=== PATIENT | female | born 1955 | race Hispanic/Latino ===

== ENCOUNTER 2019-09-15 08:34 | Emergency (ER) | payer OTHER ==
[2019-09-15] MEDS ORDERED: ALBUTEROL 2.5 MG/3 ML NEB SOL ONE (10:09)
[2019-09-15] MEDS ORDERED: IPRATROPIUM BROM 0.5MG/2.5ML ONE (10:09)
[2019-09-15] MEDS ORDERED: KETOROLAC 30 MG/ML INJ ONE (10:10)
[2019-09-15 10:17] LABS: Urine Bacteria 20-50 /HPF (<20)
[2019-09-15 10:18] LABS: Urine Culture Reflex Order NOT NEEDED; Urine Mucus 1+ /HPF (NONE SEEN); Urine Yeast PRESENT (NONE SEEN)
--- NOTE | 2019-09-15 10:27 | RAD REPORT ---
EXAM DESCRIPTION: CT - Stone Protocol - 09/15/2019 10:01 am CLINICAL HISTORY: right flank pain COMPARISON: CT-STONE PROTOCOL dated 10/02/2012 TECHNIQUE: Axial 5 mm thick images were obtained without oral or IV contrast. The [id number] span s the entirety of the system including uppermost abdomen and lung bases. All CT scans are performed using dose optimization technique as appropriate and may include automated exposure control or mA/KV adjustment according to patient size. FINDINGS: Left lung base is clear. No pericardial thickening or effusion. Minimal right pleural effu jamil is present with patchy medial right base lung parenchymal opacification approximately 3.4 x 1.5 cm in size. In the acute clinical setting an with right flank pain history, right base pneumonia is s uspected. No hydronephrosis is present and no obstructing ureteral calculi. No suspicious renal masses. Isodens e masses and pyelonephritis are not excluded on a stone protocol CT scan. Bladder is contracted which limits assessment. No significant adrenal finding. Uterus is absent. Both ovaries are present and has a normal oval shape. Overall ovarian size has incr eased since 2013. Right ovary is 3.4 cm in maximum dimension compared to 2.7 cm in 2013. Right ovary is 4.2 cm in maximum dimension compared with 3.1 cm in 2013. There is a uniform enlargement of the ov juan with no focal mass lesion identifiable. Correlation can be made with any change in normal thera py or other condition that may stimulate ovarian enlargement. This can be monitored on subsequent navi ging. Imaged portions of the liver, spleen and pancreas show no suspicious findings on non-contrast imaging . No gallbladder or biliary tree abnormality identified. Gallstones can be occult on CT imaging. No suspicious bowel findings. Normal appendix is seen. No hernia, mass or bulky lymphadenopathy noted. No free air, free fluid or inflammatory stranding. No significant bony abnormality. IMPRESSION: Suspected small posterior right lung base pneumonia and minimal pleural effusion. No hydronephrosis, obstructing calculus or acute finding. Isodense masses and pyelonephritis are not excluded on stone protocol technique. Both ovaries show an enlargement in size compared to 2013 without focal mass. Correlation can be made with any intervening hormone therapy or treatments that could have caused ovarian enlargement. This can be further evaluated with ROOM DESIGNER assessment and follow-up outpatient ultrasound.
--- NOTE | 2019-09-15 10:32 | EDPHYS ---
Physician Documentation [facility] Name: Angeli Barnes Age: 64 yrs Sex: Female : 1955 Arrival Date: 09/15/2019 Time: 08:37 Bed 20 Private MD: ED Physician Isacc Mosher HPI: 09/15 10:20 This 64 yrs old Female presents to ER via Ambulatory with complaints of Back kb Pain. 10:20 The patient complains of pain in the right flank. The pain does not radiate. Onset: The kb symptoms/episode began/occurred yesterday, at 15:00. Modifying factors: The symptoms are alleviated by nothing. the symptoms are aggravated by movement, palpation/percussion. Associated signs and symptoms: The patient has no apparent associated signs or symptoms. Severity of pain: At its worst the pain was moderate in the emergency department the pain is unchanged. The patient has not experienced similar symptoms in the past. The patient has not recently seen a physician. Pt reports right flank pain that started at 1500 yesterday. Denies any urinary symptoms. Pain worse with movement. States she is very active at work, lifting and moving, so she could have injured it that way. Historical: - Allergies: 08:53 unknown medication; rb1 - Home Meds: 08:53 lisinopril 20 mg Oral tab 1 tab once daily [Active]; levothyroxine 75 mcg tab 1 tab rb1 once daily [Active]; - PMHx: 08:53 Hypertension; Hypothyroidism; rb1 - PSHx: 08:53 bladder lift; Hysterectomy; rb1 - Immunization history:: Adult Immunizations up to date. - Coronavirus screen:: The patient has NOT traveled to [place] in the past 14 days. The patient has NOT had contact with known/suspected case of Coronavirus?. - Social history:: Smoking status: Patient reports the use of cigarette tobacco products, smokes one pack cigarettes per day. - Ebola Screening: : Patient negative for fever greater than or equal to 101.5 degrees Fahrenheit, and additional compatible Ebola Virus Disease symptoms. ROS: 10:19 Constitutional: Negative for fever, chills, and weight loss, ENT: Negative for injury, kb pain, and discharge, Neck: Negative for injury, pain, and swelling, Cardiovascular: Negative for chest pain, palpitations, and edema, Respiratory: Negative for shortness of breath, cough, wheezing, and pleuritic chest pain, Abdomen/GI: Negative for abdominal pain, nausea, vomiting, diarrhea, and constipation, : Negative for injury, bleeding, discharge, and swelling, MS/Extremity: Negative for injury and deformity, Skin: Negative for injury, rash, and discoloration, Neuro: Negative for headache, weakness, numbness, tingling, and seizure. 10:19 Back: Positive for pain at rest, pain with movement, flank pain, on the right. Exam: 10:19 Constitutional: This is a well developed, well nourished patient who is awake, alert, kb and in no acute distress. Head/Face: Normocephalic, atraumatic. ENT: Nares patent. No nasal discharge, no septal abnormalities noted. Tympanic membranes are normal and external auditory canals are clear. Oropharynx with no redness, swelling, or masses, exudates, or evidence of obstruction, uvula midline. Mucous membranes moist. Neck: Trachea midline, no thyromegaly or masses palpated, and no cervical lymphadenopathy. Supple, full range of motion without nuchal rigidity, or vertebral point tenderness. No Meningismus. Chest/axilla: Normal chest wall appearance and motion. Nontender with no deformity. No lesions are appreciated. Cardiovascular: Regular rate and rhythm with a normal S1 and S2. No gallops, murmurs, or rubs. Normal PMI, no JVD. No pulse deficits. Abdomen/GI: Soft, non-tender, with normal bowel sounds. No distension or tympany. No guarding or rebound. No evidence of tenderness throughout. Skin: Warm, dry with normal turgor. Normal color with no rashes, no lesions, and no evidence of cellulitis. MS/ Extremity: Pulses equal, no cyanosis. Neurovascular intact. Full, normal range of motion. Neuro: Awake and alert, GCS 15, oriented to person, place, time, and situation. Cranial nerves II-XII grossly intact. Motor strength 5/5 in all extremities. Sensory grossly intact. Cerebellar exam normal. Normal gait. 10:19 Back: pain, that is moderate, of the right flank, ROM is painful, normal spinal alignment noted, CVA tenderness, that is mild, that is moderate, is noted on the right. 10:20 Respiratory: the patient does not display signs of respiratory distress, Respirations: kb normal, Breath sounds: wheezing: inspiratory that is mild, is heard in the left posterior lower lobe and right posterior lower lobe. Vital Signs: 08:53 BP 161 / 83; Pulse 92; Resp 17; Temp 98.3(O); Pulse Ox 98% on R/A; Weight 62.14 kg (R); rb1 Height 5 ft. 4 in. (162.56 cm) (R); Pain 9/10; 09:52 rb1 10:14 BP 160 / 69; Pulse 77; Pulse Ox 100% on R/A; rb1 10:47 BP 148 / 78; Pulse 87; Resp 17; Pulse Ox 98% on R/A; Pain 5/10; rb1 08:53 Body Mass Index 23.52 (62.14 kg, 162.56 cm) rb1 09:52 Pt. went to radiology rb1 MDM: 08:57 Patient medically screened. kb 09:25 ED course: 2+ blood in urine dipstick. CT ordered to rule out stone. kb 10:18 Data reviewed: vital signs, nurses notes, lab test result(s), radiologic studies. Data kb interpreted: Pulse oximetry: on room air is 100 %. Interpretation: normal. 10:18 Differential diagnosis: nephrolithiasis, pyelonephritis, UTI, pneumonia. ED course: kb Awaiting CT results. . 10:30 Counseling: I had a detailed discussion with the patient and/or guardian regarding: the kb historical points, exam findings, and any diagnostic results supporting the discharge/admit diagnosis, lab results, radiology results, the need for outpatient follow up, a family practitioner, to return to the emergency department if symptoms worsen or persist or if there are any questions or concerns that arise at home. 09/15 09:08 Order name: Urine Microscopic Only; Complete Time: 10:22 kb 09/15 09:19 Order name: Urine Culture [facility] 09/15 09:08 Order name: Chest Pa And Lat (2 Views) XRAY kb 09/15 09:25 Order name: CT Stone Protocol; Complete Time: 10:29 kb 09/15 09:08 Order name: Urine Dipstick-Ancillary (obtain specimen); Complete Time: 09:24 kb Administered Medications: 10:13 Drug: TORadol 30 mg Route: IM; Site: right deltoid; rb1 10:30 Follow up: Response: No adverse reaction; Pain is decreased rb1 10:14 Drug: Albuterol 2.5 mg Route: Inhalation; rb1 10:14 Drug: AtroVENT Aerosol 0.5 mg Route: Inhalation; rb1 10:45 Drug: predniSONE 40 mg Route: PO; rb1 10:46 Follow up: Response: Medication administered at discharge. rb1 10:46 Drug: Zithromax 500 mg Route: PO; rb1 10:46 Follow up: Response: Medication administered at discharge. rb1 Disposition: 11:16 Co-signature as Attending Physician, Isacc Mosher MD. rn Disposition: 09/15/19 10:31 Discharged to Home. Impression: Pneumonia, unspecified organism. - Condition is Stable. - Discharge Instructions: Community-Acquired Pneumonia, Adult, [id number]. - Prescriptions for Prednisone 20 mg Oral Tablet - take 1 tablet by ORAL route once daily for 5 days; 5 tablet. Albuterol Sulfate 90 mcg/actuation - inhale 1-2 puff by INHALATION route every 4-6 hours; 1 Inhaler. Zithromax 500 mg Oral Tablet - take 1 tablet by ORAL route once daily for 5 days; 5 tablet. - Medication Reconciliation Form, Thank You Letter, Antibiotic Education, Prescription Opioid Use form. - Follow up: Emergency Department; When: As needed; Reason: Worsening of condition. Follow up: Private Physician; When: 2 - 3 days; Reason: Recheck today's complaints, Continuance of care, Re-evaluation by your physician. Signatures: Dispatcher [employer] EDAZ Mago Soto, STABLE ATTENDANT-C STABLE ATTENDANT-Ckb Isacc Mosher MD MD rn Barber, Rebecca, RN RN rb1 Corrections: (The following items were deleted from the chart) 10:20 10:18 Differential diagnosis: nephrolithiasis, pyelonephritis, UTI, kb kb 10:20 10:19 Constitutional: This is a well developed, well nourished patient who is awake, kb alert, and in no acute distress. Head/Face: Normocephalic, atraumatic. ENT: Nares patent. No nasal discharge, no septal abnormalities noted. Tympanic membranes are normal and external auditory canals are clear. Oropharynx with no redness, swelling, or masses, exudates, or evidence of obstruction, uvula midline. Mucous membranes moist. Neck: Trachea midline, no thyromegaly or masses palpated, and no cervical lymphadenopathy. Supple, full range of motion without nuchal rigidity, or vertebral point tenderness. No Meningismus. Chest/axilla: Normal chest wall appearance and motion. Nontender with no deformity. No lesions are appreciated. Cardiovascular: Regular rate and rhythm with a normal S1 and S2. No gallops, murmurs, or rubs. Normal PMI, no JVD. No pulse deficits. Respiratory: Lungs have equal breath sounds bilaterally, clear to auscultation and percussion. No rales, rhonchi or wheezes noted. No increased work of breathing, no retractions or nasal flaring. Abdomen/GI: Soft, non-tender, with normal bowel sounds. No distension or tympany. No guarding or rebound. No evidence of tenderness throughout. Skin: Warm, dry with normal turgor. Normal color with no rashes, no lesions, and no evidence of cellulitis. MS/ Extremity: Pulses equal, no cyanosis. Neurovascular intact. Full, normal range of motion. Neuro: Awake and alert, GCS 15, oriented to person, place, time, and situation. Cranial nerves II-XII grossly intact. Motor strength 5/5 in all extremities. Sensory grossly intact. Cerebellar exam normal. Normal gait. kb 10:30 10:18 Differential diagnosis: nephrolithiasis, pyelonephritis, UTI, kb kb 10:49 10:31 09/15/2019 10:31 Discharged to Home. Impression: Pneumonia, unspecified organism. rb1 Condition is Stable. Forms are Medication Reconciliation Form, Thank You Letter, Antibiotic Education, Prescription Opioid Use. Follow up: Emergency Department; When: As needed; Reason: Worsening of condition. Follow up: Private Physician; When: 2 - 3 days; Reason: Recheck today's complaints, Continuance of care, Re-evaluation by your physician. kb
--- NOTE | 2019-09-15 10:32 | ER ---
Nurse's Notes [facility] Name: Angeli Barnes Age: 64 yrs Sex: Female : 1955 Arrival Date: 09/15/2019 Time: 08:37 Bed 20 Private MD: Diagnosis: Pneumonia, unspecified organism Presentation: 09/15 08:53 Presenting complaint: Patient states: Started having right flank pain yesterday while rb1 at work. reports that she does a lot of lifting at work. Transition of care: patient was not received from another setting of care. Onset of symptoms was September 14, 2019. Risk Assessment: Do you want to hurt yourself or someone else? Patient reports no desire to harm self or others. Initial Sepsis Screen: Does the patient meet any 2 criteria? No. Patient's initial sepsis screen is negative. Does the patient have a suspected source of infection? No. Patient's initial sepsis screen is negative. Care prior to arrival: None. 08:53 Method Of Arrival: Ambulatory [facility] 08:53 Acuity: ERIK 3 rb1 Triage Assessment: 08:53 General: Appears in no apparent distress. comfortable, Behavior is calm, cooperative, rb1 Denies fever, feeling ill. Pain: Complains of pain in right flank Pain currently is 9 out of 10 on a pain scale. Pain began 1 day ago. Neuro: Level of Consciousness is awake, alert, obeys commands, Oriented to person, place, time, situation. Cardiovascular: Capillary refill < 3 seconds is brisk in bilateral fingers. Respiratory: Airway is patent Respiratory effort is even, unlabored, Respiratory pattern is regular, symmetrical. GI: No signs and/or symptoms were reported involving the gastrointestinal system. : No signs and/or symptoms were reported regarding the genitourinary system. Derm: Skin is pink, warm \T\ dry. Musculoskeletal: Range of motion: intact in all extremities. Historical: - Allergies: 08:53 unknown medication; rb1 - Home Meds: 08:53 lisinopril 20 mg Oral tab 1 tab once daily [Active]; levothyroxine 75 mcg tab 1 tab rb1 once daily [Active]; - PMHx: 08:53 Hypertension; Hypothyroidism; rb1 - PSHx: 08:53 bladder lift; Hysterectomy; rb1 - Immunization history:: Adult Immunizations up to date. - Coronavirus screen:: The patient has NOT traveled to [place] in the past 14 days. The patient has NOT had contact with known/suspected case of Coronavirus?. - Social history:: Smoking status: Patient reports the use of cigarette tobacco products, smokes one pack cigarettes per day. - Ebola Screening: : Patient negative for fever greater than or equal to 101.5 degrees Fahrenheit, and additional compatible Ebola Virus Disease symptoms. Screenin:53 Abuse screen: Denies threats or abuse. Nutritional screening: No deficits noted. rb1 Tuberculosis screening: No symptoms or risk factors identified. Fall Risk None identified. Assessment: 08:53 General: See triage assessment. rb1 09:50 Reassessment: Patient appears in no apparent distress at this time. Patient and/or rb1 family updated on plan of care and expected duration. Pain level reassessed. Patient is alert, oriented x 3, equal unlabored respirations, skin warm/dry/pink. 10:40 Reassessment: Patient appears in no apparent distress at this time. Patient states rb1 feeling better. Vital Signs: 08:53 BP 161 / 83; Pulse 92; Resp 17; Temp 98.3(O); Pulse Ox 98% on R/A; Weight 62.14 kg (R); rb1 Height 5 ft. 4 in. (162.56 cm) (R); Pain 9/10; 09:52 rb1 10:14 BP 160 / 69; Pulse 77; Pulse Ox 100% on R/A; rb1 10:47 BP 148 / 78; Pulse 87; Resp 17; Pulse Ox 98% on R/A; Pain 5/10; rb1 08:53 Body Mass Index 23.52 (62.14 kg, 162.56 cm) rb1 09:52 Pt. went to radiology [facility] ED Course: 08:37 Patient arrived in ED. ag5 08:53 Patient has correct armband on for positive identification. Bed in low position. Call rb1 light in reach. Side rails up X 1. Pulse ox on. NIBP on. Warm blanket given. 08:53 Arm band placed on right wrist. rb1 08:57 Mago Soto FNP-C is PHCP. kb 08:57 Isacc Mosher MD is Attending Physician. kb 09:07 Patricia Huff, DESHAUN is Primary Nurse. rb1 09:09 Triage completed. rb1 09:24 Urine Microscopic Only Sent. rb1 09:42 Chest Pa And Lat (2 Views) XRAY In Process Unspecified. EDMS 10:03 CT Stone Protocol In Process Unspecified. EDMS 10:47 No provider procedures requiring assistance completed. Patient did not have IV access rb1 during this emergency room visit. Administered Medications: 10:13 Drug: TORadol 30 mg Route: IM; Site: right deltoid; rb1 10:30 Follow up: Response: No adverse reaction; Pain is decreased rb1 10:14 Drug: Albuterol 2.5 mg Route: Inhalation; rb1 10:14 Drug: AtroVENT Aerosol 0.5 mg Route: Inhalation; rb1 10:45 Drug: predniSONE 40 mg Route: PO; rb1 10:46 Follow up: Response: Medication administered at discharge. rb1 10:46 Drug: Zithromax 500 mg Route: PO; rb1 10:46 Follow up: Response: Medication administered at discharge. rb1 Outcome: 10:31 Discharge ordered by MD. kb 10:47 Discharged to home ambulatory. rb1 10:47 Condition: stable 10:47 Discharge instructions given to patient, Instructed on discharge instructions, follow up and referral plans. medication usage, Demonstrated understanding of instructions, follow-up care, medications, Prescriptions given X 1. 10:49 Patient left the ED. rb1 Signatures: Dispatcher [employer] EDMS Mago Soto, FRANSISCA MCRAEP-Patricia Kay, RN RN rb1 Jose Shoemaker ag5
[2019-09-15] MEDS ORDERED: predniSONE 20 MG TAB ONE (10:44)
[2019-09-15] MEDS ORDERED: AZITHROMYCIN 250 MG TAB ONE (10:44)
--- NOTE | 2019-09-15 10:51 | RAD REPORT ---
EXAM DESCRIPTION: RAD - Chest Pa And Lat (2 Views) - 09/15/2019 9:36 am CLINICAL HISTORY: wheezing, right flank pain Chest pain. COMPARISON: Stone Protocol dated 09/15/2019 FINDINGS: The right lung base is hazy with small right pleural effusion likely representing mild inf iltrate/ pneumonia. The lungs are otherwise mildly emphysematous but clear. The heart is normal in si ze. No displaced fractures.
[2019-09-15 11:33] VITALS: TEMP 98.3
[2019-09-15 11:36] VITALS: BP 148/78; O2SAT 98
== END 2019-09-15 10:49 | disposition home or self-care (01) ==
LOC: ER 08:34
DX: J18.9 Pneumonia, unspecified organism (principal); I10 Essential (primary) hypertension; F17.210 Nicotine dependence, cigarettes, uncomplicated; E03.9 Hypothyroidism, unspecified
CPT/HCPCS: 71046; 74176; 76377; 81015; 87086; 87088; 96372; 99284; J7512

== ENCOUNTER 2020-01-14 13:00 | Emergency (ER) | payer OTHER ==
--- NOTE | 2020-01-14 15:28 | EDPHYS ---
Physician Documentation [facility] Name: Angeli Barnes Age: 64 yrs Sex: Female : 1955 Arrival Date: 01/14/2020 Time: 13:03 Bed 13 Private MD: ED Physician Eze Rodrigez HPI: 01/14 07:18 This 64 yrs old Female presents to ER via Ambulatory with complaints of Foot kdr Pain. 07:18 The patient presents with pain. The complaints affect the left foot. Context: The kdr problem was sustained at home, resulted from an unknown cause, Mechanism of Injury: Unknown the patient can fully bear weight, the patient is able to ambulate, with mild difficulty. Onset: The symptoms/episode began/occurred gradually, 1 week(s) ago. Modifying factors: The symptoms are alleviated by Non-weight bearing the symptoms are aggravated by weight bearing. Associated signs and symptoms: The patient has no apparent associated signs or symptoms. Severity of symptoms: At their worst the symptoms were mild, in the emergency department the symptoms are unchanged. The patient has not experienced similar symptoms in the past. The patient has not recently seen a physician. Historical: - Allergies: 01/13 13:13 Sulfa (Sulfonamide Antibiotics); ss - PMHx: 13:12 Hypertension; Hypothyroidism; ss - PSHx: 13:12 bladder lift; Hysterectomy; ss - Immunization history:: Adult Immunizations up to date. - Social history:: Smoking status: Patient reports the use of cigarette tobacco products, smokes one-half pack cigarettes per day. ROS: 01/14 07:18 Constitutional: Negative for fever, chills, and weight loss, Eyes: Negative for injury, kdr pain, redness, and discharge. MS/extremity: Positive for of the lateral side of left foot, Negative for injury or acute deformity, decreased range of motion, ecchymosis, erythema, paresthesias, puncture, rash, swelling, tingling. Exam: 07:18 Constitutional: This is a well developed, well nourished patient who is awake, alert, kdr and in no acute distress. Head/Face: Normocephalic, atraumatic. Eyes: Pupils equal round and reactive to light, extra-ocular motions intact. Lids and lashes normal. Conjunctiva and sclera are non-icteric and not injected. Cornea within normal limits. Periorbital areas with no swelling, redness, or edema. 07:18 Musculoskeletal/extremity: Extremities: grossly normal except: noted in the lateral side of left foot: Vital Signs: 01/13 13:10 BP 151 / 73; Pulse 88; Resp 16; Temp 97.9(TE); Pulse Ox 100% on R/A; Weight 63.5 kg; ss Height 5 ft. 4 in. (162.56 cm); Pain 7/10; 15:51 BP 114 / 78; Pulse 71; Resp 18; Temp 98.0(O); Pulse Ox 100% on R/A; Pain 5/10; ls4 13:10 Body Mass Index 24.03 (63.50 kg, 162.56 cm) MDM: 15:27 Patient medically screened. kdr 01/14 07:18 Data reviewed: vital signs, nurses notes. Counseling: I had a detailed discussion with kdr the patient and/or guardian regarding: the historical points, exam findings, and any diagnostic results supporting the discharge/admit diagnosis, radiology results, the need for outpatient follow up. 01/13 14:04 Order name: XRAY Foot LEFT 3 View 01/13 15:35 Order name: Lalo Wrap: Left foot; Complete Time: 15:49 kdr Administered Medications: 01/13 15:49 Drug: traMADol 50 mg Route: PO; ls4 15:51 Follow up: Response: Other ls4 Disposition: 01/14/20 15:27 Discharged to Home. Impression: Pain in left foot. - Condition is Stable. - Discharge Instructions: Foot Pain. - Prescriptions for Tramadol 50 mg Oral Tablet - take 1 tablet by ORAL route every 8 hours as needed; 12 tablet. - Medication Reconciliation Form, Thank You Letter, Prescription Opioid Use form. - Follow up: Private Physician; When: 2 - 3 days; Reason: If symptoms return, Further diagnostic work-up, Recheck today's complaints, Continuance of care, Re-evaluation by your physician. - Problem is new. - Symptoms are unchanged. Signatures: Dispatcher [employer] EDMS Eze Rodrigez MD MD [facility] Almaz Gonzalez RN RN Pricila Hoskins RN RN ls4 Corrections: (The following items were deleted from the chart) 15:52 15:27 01/14/2020 15:27 Discharged to Home. Impression: Pain in left foot. Condition is ls4 Stable. Forms are Medication Reconciliation Form, Thank You Letter, Antibiotic Education, Prescription Opioid Use. Follow up: Private Physician; When: 2 - 3 days; Reason: If symptoms return, Further diagnostic work-up, Recheck today's complaints, Continuance of care, Re-evaluation by your physician. Problem is new. Symptoms are unchanged. kdr
--- NOTE | 2020-01-14 15:28 | ER ---
Nurse's Notes [facility] Name: Angeli Barnes Age: 64 yrs Sex: Female : 1955 Arrival Date: 01/14/2020 Time: 13:03 Bed 13 Private MD: Diagnosis: Pain in left foot Presentation: 01/13 13:10 Chief complaint: Patient states: L foot pain x 1 week. Denies injury. Coronavirus ss screen: Proceed with normal triage. Patient denies a cough. Patient denies shortness of breath or difficulty breathing. Patient denies measured and/or subjective temperature greater than 100.4F prior to today's visit. Patient denies travel on a cruise ship or to a country the [facility] currently lists as an affected area. Patient denies contact with known and/or suspected case of COVID-19. Ebola Screen: Patient denies exposure to infectious person. Patient denies travel to an Ebola-affected area in the 21 days before illness onset. Initial Sepsis Screen: Does the patient meet any 2 criteria? No. Patient's initial sepsis screen is negative. Does the patient have a suspected source of infection? No. Patient's initial sepsis screen is negative. Risk Assessment: Do you want to hurt yourself or someone else? Patient reports no desire to harm self or others. Onset of symptoms was January 07, 2020. 13:10 Method Of Arrival: Ambulatory ss 13:10 Acuity: ERIK 4 ss Historical: - Allergies: 13:13 Sulfa (Sulfonamide Antibiotics); ss - PMHx: 13:12 Hypertension; Hypothyroidism; ss - PSHx: 13:12 bladder lift; Hysterectomy; ss - Immunization history:: Adult Immunizations up to date. - Social history:: Smoking status: Patient reports the use of cigarette tobacco products, smokes one-half pack cigarettes per day. Screenin:16 Abuse screen: Denies threats or abuse. Nutritional screening: No deficits noted. ss Tuberculosis screening: Never had TB. Fall Risk None identified. Assessment: 13:16 General: Appears in no apparent distress. comfortable, Behavior is calm, cooperative. ss Pain: Complains of pain in lateral side of left foot Pain currently is 7 out of 10 on a pain scale. Quality of pain is described as aching, tender, Is continuous. Neuro: Level of Consciousness is awake, alert, obeys commands, Oriented to person, place, time, situation. Cardiovascular: Pulses are palpable in right posterior tibial artery and left posterior tibial artery. Respiratory: Airway is patent Respiratory effort is even, unlabored, Respiratory pattern is regular, symmetrical. GI: Patient currently denies diarrhea, nausea. GI: No signs and/or symptoms were reported involving the gastrointestinal system. EENT: Throat is clear. Derm: Skin is intact, is healthy with good turgor, Skin is dry, Skin is pink, warm \T\ dry. normal. Musculoskeletal: Swelling absent. 14:44 Reassessment: Patient appears in no apparent distress at this time. Patient is alert, ss oriented x 3, equal unlabored respirations, skin warm/dry/pink. awaiting XRAY results. 15:49 Reassessment: Patient appears in no apparent distress at this time. Patient is alert, ls4 oriented x 3, equal unlabored respirations, skin warm/dry/pink. nicolette wrap applied to left foot. patient ambulated with no distress to exit. Vital Signs: 13:10 BP 151 / 73; Pulse 88; Resp 16; Temp 97.9(TE); Pulse Ox 100% on R/A; Weight 63.5 kg; ss Height 5 ft. 4 in. (162.56 cm); Pain 7/10; 15:51 BP 114 / 78; Pulse 71; Resp 18; Temp 98.0(O); Pulse Ox 100% on R/A; Pain 5/10; ls4 13:10 Body Mass Index 24.03 (63.50 kg, 162.56 cm) ED Course: 13:03 Patient arrived in ED. ag5 13:12 Triage completed. ss 13:13 Arm band placed on left wrist. ss 13:16 Almaz Gonzalez, DESHAUN is Primary Nurse. ss 13:16 Patient has correct armband on for positive identification. Bed in low position. Call ss light in reach. 14:19 Eze Rodrigez MD is Attending Physician. kdr 15:10 XRAY Foot LEFT 3 View In Process Unspecified. EDMS 15:51 No provider procedures requiring assistance completed. Patient did not have IV access ls4 during this emergency room visit. Administered Medications: 15:49 Drug: traMADol 50 mg Route: PO; ls4 15:51 Follow up: Response: Other ls4 Outcome: 15:27 Discharge ordered by . kdr 15:50 Discharged to home ambulatory, with family. ls4 15:50 Condition: good 15:50 Discharge instructions given to patient, family, Instructed on discharge instructions, follow up and referral plans. medication usage, safety practices, Demonstrated understanding of instructions, follow-up care, medications, Prescriptions given X 1. 15:52 Patient left the ED. ls4 Signatures: Dispatcher [employer] EDMS Eze Rodrigez MD MD kdr Smirch, Shelby, RN RN Pricila Gusman RN RN ls4 Jose Shoemaker [facility]
[2020-01-14] MEDS ORDERED: TRAMADOL HCL 50 MG TAB ONE (15:51)
[2020-01-14 16:00] VITALS: O2SAT 100
[2020-01-14 16:01] VITALS: BP 114/78; TEMP 98
--- NOTE | 2020-01-14 16:33 | RAD REPORT ---
EXAM DESCRIPTION: RAD - Foot Left 3 View - 01/14/2020 3:10 pm CLINICAL HISTORY: Left Foot pain FINDINGS: No fracture or dislocation is seen. Bones are osteoporotic
== END 2020-01-14 15:52 | disposition home or self-care (01) ==
LOC: ER 13:00
DX: M79.672 Pain in left foot (principal); I10 Essential (primary) hypertension; Z88.2 Allergy status to sulfonamides
CPT/HCPCS: 99283

== ENCOUNTER 2020-10-15 11:58 | Emergency (ER) | payer OTHER ==
--- OUTSIDE RECORDS SUMMARY | 2020-10-15 12:01 | XMS REPORT | Continuity of Care Document ---
:1955 Author Organization [facility] t Address [address] [place] [address] Care Team Providers Name Role Phone Jordy Attending Clinician [phone] Payers Payer Name Policy Type Policy Number Effective Date Expiration Date S ource Problems This patient has no known problems. Allergies, Adverse Reactions, Alerts Allergy Allergy Status Severity Reaction(s) Onset Inactive Treating Comm ents Source Name Type Date Date Clinician Sulfa DA Active 2019-07 [facility] (Sulfona 0-06 Clear mide 00:00: [facility] This patient has no known medications. Procedures This patient has no known procedures. Encounters Start End Encounter Admission Attending Care Care Encounter Source Date/Time Date/Time Type Type Clinicians Facility Department ID 2020-08-04 2020-08-04 [facility] [id number] [id number] 00:00:00 00:00:00 [facility] [id number] Results Test Description Test Time Test Comments Results Result Comments Source SURG 2020-05-06 16:23:00 --------RUN DATE: 05/06/20 [facility] PAGE 1 RUN TIME: 1623 Specimen Inquiry RUN USER: INTERFACE --------PATIENT: NIRALI CARTER LOC: [facility] U #: [id number] AGE/SX: 64/F ROOM: RE05/04/20[facility] DR: Rodney Becker MD : 53 BED: DIS: STATUS: [facility] TLOC: -------- SPEC #: [id number] RECD: 05/04/20 STATUS: CARLOS RECrystal #: [id number] ANGELINA: 05/04/[address] [facility] [address]: Rodney Becker MD ENTERED: 05/04/20 SP TYPE: SURG OTHR DR: DOES_NOT KNOW ORDERED: SURG PATH LVL 10/28 COPIES TO: DOES_NOT KNOW Rodney Becker MD [address] [place] [address] [id number] [place] [address] HISTOLOGY: TISSUE ID BLK PCS KERI LEV PROCEDURE DISPOSITION ____ ___ ___ ___ OVARY, NOS A 1 1 OVARY, NOS B 1 1 PROCEDURES: SURG PATH LVL 4 (05/04/20-1512) TISSUES: A. OVARY, NOS - LEFT OVARY AND FALLOPIAN TUBE B. OVARY, NOS - RIGHT OVARY AND FALLOPIAN TUBE CLINICAL HISTORY RIGHT OVARIAN CYST CPT CODES CPT CODE(S): 93059L6 , , , , , , FINAL DIAGNOSIS A. Left ovary and fallopian tube, salpingo-oophorectomy : FALLOPIAN TUBE WITH PARATUBAL CYST POLYCYSTIC OVARY B. Right ovary and fallopian tube, salpingo-oophorectomy : FALLOPIAN TUBE WITH PARATUBAL CYST POLYCYSTIC OVARY CONTINUED ON NEXT PAGE --------RUN DATE: 05/06/20 [facility] PAGE 2 RUN TIME: 1623 Specimen Inquiry RUN USER: INTERFACE --------SPEC #: [id number] PATIENT: NIRALI CARTER #[id number] (Continued) GROSS DESCRIPTION A. Left ovary and fallopian tube. Received in formalin is a 16.5 gram left salpingo-oophorectomy specimen and consists of a herrera-rey ovary, 4.5 x 3.8 x 1.7 cm and attached short segment of fallopian tube, 1.6 x 0.6 x 0.5 cm. The specimen is serially sectioned and consists of a multiloculated cyst filled with translucent nonviscous fluid. The remainder of the ovary is rey-brown and solid. The short segment of attached segment of fallopian tube has a patent lumen and is grossly unremarkable. Spray Dry Operator sections submitted as A1 - A5. B. Right ovary and fallopian tube. Received in formalin is a 13.5 gram right salpingo-oophorectom y specimen that includes a short segment of fallopian tube, 2.5 x 0.7 x 0.3 cm and herrera-rey ovary, 4.0 x 3.3 x 2.0 cm. There is a wide defect at one side of the ovary, 3.5 cm and reveals an underlying multiloculated cyst filled with translucent nonviscous fluid. The remainder of the ovary is herrera-rey and solid. The attached segment of fallopian tube is patent and is grossly unremarkable. Spray Dry Operator sections submitted as B1 - B5. ba/nr Grossing performed at [facility] Pathology, [address] [place] [address], [address], [place] [address]. Program Scheduler: Jerome Snow M.D. MICROSCOPIC DESCRIPTION A. Left ovary and fallopian tube. Sections demonstrate fallopian tube with associated paratubal cysts. Sections of the ovary demonstrate multiple simple ovarian cyst with associated ovarian stroma. No dysplasia or malignancy is identified. B. Right ovary and fallopian tube. Sections demonstrate fallopian tube with associated paratubal cyst. Section of the ovary demonstrate ovarian stroma with associated simple portal cysts. No dysplasia or malignancy is identified. Signed SIGNATURE ON FILE Brendan Harris Peter 05/06/20 1623 -------- END OF REPORT COVID 19 INHOUSE AG 2020-05-03 13:48:00 Test Item Value Reference Range Interpretation Comme nts COVID 19 INHOUSE AG (test code = NEGATIVE Negative Per chief construction inspector, negative [id number]) results should be treated aspresumptive a nd, if inconsistent wi th clinical signs andsymptoms or necessary for patient managem ent, should betested with a n alternative molecular assay . Negative resultsdo not p reclude SARS-CoV-2 infection and s hould not be usedas the sole basis for patient management deci sions. Negative results should be considered in the context of apatient's recent exposures, hist ory, presence of clinicalsigns a nd symptoms consistent with COVID-19. Spec Comments: PRE OPBASIC METABOLIC [id number] 13:32:00 Test Item Value Reference Range Interpretation Comments SODIUM (test code = NA) 137 mmol/L 134-147 N POTASSIUM (test code = 4.4 mmol/L 3.4-5.0 N K) CHLORIDE (test code = 105 mmol/L 100-108 N CL) CARBON DIOXIDE (test 28 mmol/L 21-32 N code = CO2) ANION GAP (test code = 4.0 GAP calc 4.0-15.0 N GAP) GLUCOSE (test code = 97 MG/DL 70-110 N GLU) BLOOD UREA NITROGEN 9 MG/DL 7-18 N (test code = BUN) GLOMERULAR FILTRATION >=60 max estimate >60 RATE (test code = GFR) estGFR CREATININE (test code = 0.8 MG/DL 0.6-1.0 N CREAT) CALCIUM (test code = CA) 9.3 MG/DL 8.5-10.1 N CBC W/AUTO [id number] 13:21:00 Test Item Value Reference Range Interpretation Comments WHITE BLOOD CELL (test code = 5.2 K/mm3 3.5-11.0 N WBC) RED BLOOD CELL (test code = 4.55 M/mm3 4.70-6.10 L RBC) HEMOGLOBIN (test code = HGB) 13.8 G/DL 10.4-14.9 N HEMATOCRIT (test code = HCT) 42.8 % 31.5-44.1 N MEAN CELL VOLUME (test code = 94.1 Fl 84.5-98.6 N MCV) MEAN CELL HGB (test code = MCH) 30.3 pg 27.0-34.2 N MEAN CELL HGB CONCETRATION 32.2 G/DL 31.5-34.0 N (test code = MCHC) RED CELL DISTRIBUTION WIDTH 13.4 SD 11.5-14.5 N (test code = RDW) PLATELET COUNT (test code = 237 K/mm3 150-450 N PLT) MEAN PLATELET VOLUME (test code 10.50 fL 7.0-10.5 N = MPV) NEUTROPHIL % (test code = NT%) 66.2 % 40-76 N IMMATURE GRANULOCYTE % (test 0.2 % 0.0-5.0 N code = IG%) LYMPHOCYTE % (test code = LY%) 23.3 % 20.5-51.1 N MONOCYTE % (test code = MO%) 8.9 % 1.7-9.3 N EOSINOPHIL % (test code = EO%) 0.6 % 0.0-6.0 N BASOPHIL % (test code = BA%) 0.8 % 0.0-2.0 N NUCLEATED RBC % (test code = 0.0 /100WBC% 0.0-1.0 N NRBC%) NEUTROPHIL # (test code = NT#) 3.4 K/mm3 1.8-7.6 N IMMATURE GRANULOCYTE # (test 0.01 x10 3/uL 0.00-0.03 N code = IG#) LYMPHOCYTE # (test code = LY#) 1.2 K/mm3 0.6-3.2 N MONOCYTE # (test code = MO#) 0.5 K/mm3 0.3-1.1 N EOSINOPHIL # (test code = EO#) 0.0 K/mm3 0.0-0.4 N BASOPHIL # (test code = BA#) 0.0 K/mm3 0.0-0.1 N NUCLEATED RBC # (test code = 0.0 K/mm3 0.0-0.1 N NRBC#) MANUAL DIFF REQUIRED (test code NO DIFF/SCN CRITERIA = MDIFF)
[2020-10-15 13:26] LABS: Urine Blood 1+ (NEG); Urine Glucose NEGATIVE (NEG); Urine Protein NEGATIVE (NEG); Urine Specific Gravity <1.005 (1.005-1.030); Urine pH 5.5 (5.0-7.0)
[2020-10-15 13:34] LABS: Absolute Lymphocytes (CBC) 1.2 K/uL (0.7-4.9); Basophils % 0.4 % (0-1.3); Hematocrit 45.1 % (36.0-45.0); Lymphocytes % 11.4 % (15.3-44.8); MPV 8.8 fL (7.6-11.3); RBC Red Blood Cell Count 4.97 M/uL (3.86-4.86)
[2020-10-15] MEDS ORDERED: MORPHINE 4 MG/ML SYR ONE (13:49)
[2020-10-15] MEDS ORDERED: DIAZEPAM 5 MG TABLET ONE (13:49)
[2020-10-15] MEDS ORDERED: dexAMETHasone 10 MG/ML VIAL ONE (13:49)
[2020-10-15] MEDS ORDERED: KETOROLAC 30 MG/ML INJ ONE (13:50)
[2020-10-15] MEDS ORDERED: NA CHLORIDE 0.9% 1,000 ML ONE (13:50)
[2020-10-15] MEDS ORDERED: ONDANSETRON 4 MG/2 ML VIAL ONE (13:50)
[2020-10-15 13:51] LABS: Albumin 4.2 g/dL (3.4-5.0); Bilirubin Total 0.4 mg/dL (0.2-1.0); Potassium 3.8 mmol/L (3.5-5.1); Protein, Total 8.6 g/dL (6.4-8.2)
--- NOTE | 2020-10-15 13:53 | RAD REPORT ---
EXAM DESCRIPTION: CT - Spine Lumbar Wo Con - 10/15/2020 1:35 pm CLINICAL HISTORY: Radiculopathy. Pain;Radiculopathy COMPARISON: No comparisons TECHNIQUE: Axial noncontrast CT imaging of the lumbar spine was performed with coronal and sagittal re-formatted images. All CT scans are performed using dose optimization technique as appropriate and may include automated exposure control or mA/KV adjustment according to patient size. FINDINGS: No acute lumbar spine fracture seen. No aggressive marrow pattern or malalignment. Paraspinal tissues are normal in thickness. No paraspinal abscess or hematoma seen. Mild to moderate lumbar degenerative changes are present. Significant canal stenosis is suspected at L4-5. IMPRESSION: No acute lumbar spine abnormality. Moderate lower lumbar spondylosis is present with probable spinal canal stenosis at L4-5. Follow-up n onemergent MRI of the lumbar spine would be suggested for better assessment.
--- NOTE | 2020-10-15 14:22 | EDPHYS ---
Physician Documentation [facility] Name: Angeli Barnes Age: 65 yrs Sex: Female : 1955 Arrival Date: 10/15/2020 Time: 12:01 Bed 6 Private MD: CHANDA Physician Aldo Saul HPI: 10/15 13:45 This 65 yrs old Female presents to ER via Wheelchair with complaints of Leg freda Pain, Back Pain. 13:45 The patient presents with decreased range of motion, pain, that is acute. The freda complaints affect the coccyx, left lower back, right lower back, left gluteus farzad and right gluteus farzad. Historical: - Allergies: 12:09 Sulfa (Sulfonamide Antibiotics); ca1 12:09 unknown medication; ca1 - Home Meds: 12:09 lisinopril 25 mg Oral tab 1 tab once daily [Active]; levothyroxine 75 mcg tab 1 tab ca1 once daily [Active]; - PMHx: 12:09 Hypertension; Hypothyroidism; ca1 - PSHx: 12:09 bladder lift; Hysterectomy; ca1 - Immunization history:: Flu vaccine is up to date. - Social history:: Smoking status: Patient reports the use of cigarette tobacco products, smokes one-half pack cigarettes per day. ROS: 13:46 Constitutional: Negative for fever, chills, and weight loss, Eyes: Negative for injury, freda pain, redness, and discharge, ENT: Negative for injury, pain, and discharge, Neck: Negative for injury, pain, and swelling, Cardiovascular: Negative for chest pain, palpitations, and edema, Respiratory: Negative for shortness of breath, cough, wheezing, and pleuritic chest pain, Abdomen/GI: Negative for abdominal pain, nausea, vomiting, diarrhea, and constipation, : Negative for injury, bleeding, discharge, and swelling, MS/Extremity: Negative for injury and deformity, Skin: Negative for injury, rash, and discoloration, Neuro: Negative for headache, weakness, numbness, tingling, and seizure, Psych: Negative for depression, anxiety, suicide ideation, homicidal ideation, and hallucinations, Allergy/Immunology: Negative for hives, rash, and allergies, Endocrine: Negative for neck swelling, polydipsia, polyuria, polyphagia, and marked weight changes, Hematologic/Lymphatic: Negative for swollen nodes, abnormal bleeding, and unusual bruising. 13:46 Back: Positive for decreased range of motion, pain at rest, radiated pain, of the lumbar area, left low back and right low back. Exam: 13:46 Constitutional: This is a well developed, well nourished patient who is awake, alert, freda and in no acute distress. Head/Face: Normocephalic, atraumatic. Eyes: Pupils equal round and reactive to light, extra-ocular motions intact. Lids and lashes normal. Conjunctiva and sclera are non-icteric and not injected. Cornea within normal limits. Periorbital areas with no swelling, redness, or edema. ENT: Nares patent. No nasal discharge, no septal abnormalities noted. Tympanic membranes are normal and external auditory canals are clear. Oropharynx with no redness, swelling, or masses, exudates, or evidence of obstruction, uvula midline. Mucous membranes moist. Neck: Trachea midline, no thyromegaly or masses palpated, and no cervical lymphadenopathy. Supple, full range of motion without nuchal rigidity, or vertebral point tenderness. No Meningismus. Chest/axilla: Normal chest wall appearance and motion. Nontender with no deformity. No lesions are appreciated. Cardiovascular: Regular rate and rhythm with a normal S1 and S2. No gallops, murmurs, or rubs. Normal PMI, no JVD. No pulse deficits. Respiratory: Lungs have equal breath sounds bilaterally, clear to auscultation and percussion. No rales, rhonchi or wheezes noted. No increased work of breathing, no retractions or nasal flaring. Abdomen/GI: Soft, non-tender, with normal bowel sounds. No distension or tympany. No guarding or rebound. No evidence of tenderness throughout. Female : Normal external genitalia. Skin: Warm, dry with normal turgor. Normal color with no rashes, no lesions, and no evidence of cellulitis. MS/ Extremity: Pulses equal, no cyanosis. Neurovascular intact. Full, normal range of motion. Neuro: Awake and alert, GCS 15, oriented to person, place, time, and situation. Cranial nerves II-XII grossly intact. Motor strength 5/5 in all extremities. Sensory grossly intact. Cerebellar exam normal. Normal gait. Psych: Awake, alert, with orientation to person, place and time. Behavior, mood, and affect are within normal limits. 13:46 Back: pain, that is mild, that is moderate, ROM is painful, normal spinal alignment noted, CVA tenderness, is absent, vertebral tenderness, is not appreciated, muscle spasm, is appreciated in the left low back, left mid back, right mid back and right low back. Vital Signs: 12:06 BP 162 / 76; Pulse 97; Resp 16 S; Temp 98(TE); Pulse Ox 99% on R/A; Weight 65.77 kg ca1 (R); Height 5 ft. 4 in. (162.56 cm) (R); Pain 10/10; 15:33 BP 140 / 65; Pulse 96; Resp 16 S; Pulse Ox 99% on R/A; jd3 12:06 Body Mass Index 24.89 (65.77 kg, 162.56 cm) ca1 MDM: 12:36 Patient medically screened. [facility] 13:47 Differential diagnosis: closed fracture, contusion. Data reviewed: vital signs, nurses [facility] notes, lab test result(s), radiologic studies, CT scan. Data interpreted: lunchroom monitor: rate is 97 beats/min, rhythm is regular, Pulse oximetry: on room air is 99 %. Test interpretation: by ED physician or midlevel provider:. Counseling: I had a detailed discussion with the patient and/or guardian regarding: the historical points, exam findings, and any diagnostic results supporting the discharge/admit diagnosis, lab results, radiology results, the need for outpatient follow up, for definitive care, a family practitioner, a neurologist. 10/15 13:14 Order name: CBC with Diff; Complete Time: 14:20 [facility] 10/15 13:14 Order name: Comprehensive Metabolic Panel; Complete Time: 14:20 [facility] 10/15 13:14 Order name: Lipase; Complete Time: 14:20 [facility] 10/15 13:14 Order name: CT Lumbar Spine Wo Con; Complete Time: 14:20 [facility] 10/15 13:24 Order name: Urine Dipstick--Ancillary (enter results); Complete Time: 14:20 aa5 10/15 13:14 Order name: Urine Dipstick-Ancillary (obtain specimen); Complete Time: 13:23 [facility] Administered Medications: 13:48 Drug: NS 0.9% 1000 ml Route: IV; Rate: 1 bolus; Site: right antecubital; jd3 14:45 Follow up: Response: No adverse reaction; IV Status: Completed infusion jd3 13:48 Drug: Decadron - Dexamethasone 10 mg Route: IVP; Site: right antecubital; jd3 14:40 Follow up: Response: No adverse reaction jd3 13:48 Drug: TORadol 30 mg Route: IVP; Site: right antecubital; jd3 14:40 Follow up: Response: No adverse reaction jd3 13:48 Drug: Valium 5 mg Route: PO; jd3 14:40 Follow up: Response: No adverse reaction jd3 13:48 Drug: morphine 4 mg Route: IVP; Site: right antecubital; jd3 15:40 Follow up: Response: No adverse reaction; RASS: Alert and Calm (0) jd3 13:49 Drug: Zofran (Ondansetron) 4 mg Route: IVP; Site: right antecubital; jd3 15:40 Follow up: Response: No adverse reaction jd3 Disposition: 10/15/20 14:21 Discharged to Home. Impression: Sciatica, Low back pain, Spondylolysis, lumbar region. - Condition is Stable. - Discharge Instructions: Back Pain, Adult, Musculoskeletal Pain, Sciatica, Back Pain, Adult, Tfbf-[id number]-Nplt, Sciatica, Vujt-er-Sevl. - Prescriptions for dexamethasone 2 mg Oral tablet - take 1 tablet by ORAL route 3 times per day; 15 tablet. Ibuprofen 600 mg Oral Tablet - take 1 tablet by ORAL route every 6 hours As needed take with food; 20 tablet. Tylenol- Codeine #3 300-30 mg Oral Tablet - take 2 tablets by ORAL route every 4-6 hours As needed; 20 tablet. Cyclobenzaprine 5 mg Oral Tablet - take 1 tablet by ORAL route 3 times per day As needed; 15 tablet. - Medication Reconciliation Form, Thank You Letter, Antibiotic Education, Prescription Opioid Use, Work release form form. - Follow up: Private Physician; When: 2 - 3 days; Reason: Recheck today's complaints, Continuance of care, Re-evaluation by your physician. Follow up: Hardeep Del Rosario; When: 2 - 3 days; Reason: Recheck today's complaints, Continuance of care, Re-evaluation by your physician. - Problem is new. - Symptoms have improved. Signatures: Dispatcher [employer] Aldo Cazares, MD MD freda Silva, Mack, RN RN jd3 AcBailey sue RN RN ca1 Corrections: (The following items were deleted from the chart) 15:35 14:21 10/15/2020 14:21 Discharged to Home. Impression: Sciatica; Low back pain; jd3 Spondylolysis, lumbar region. Condition is Stable. Discharge Instructions: Back Pain, Adult, Musculoskeletal Pain, Sciatica, Back Pain, Adult, Rpaq-sw-Tzov, Sciatica, Wayb-cr-Ritt. Prescriptions for dexamethasone 2 mg Oral tablet - take 1 tablet by ORAL route 3 times per day; 15 tablet, Ibuprofen 600 mg Oral Tablet - take 1 tablet by ORAL route every 6 hours As needed take with food; 20 tablet, Tylenol-Codeine #3 300-30 mg Oral Tablet - take 2 tablets by ORAL route every 4-6 hours As needed; 20 tablet, Cyclobenzaprine 5 mg Oral Tablet - take 1 tablet by ORAL route 3 times per day As needed; 15 tablet. and Forms are Medication Reconciliation Form, Thank You Letter, Antibiotic Education, Prescription Opioid Use. Follow up: Private Physician; When: 2 - 3 days; Reason: Recheck today's complaints, Continuance of care, Re-evaluation by your physician. Follow up: Hardeep Del Rosario; When: 2 - 3 days; Reason: Recheck today's complaints, Continuance of care, Re-evaluation by your physician. Problem is new. Symptoms have improved. freda
--- NOTE | 2020-10-15 14:22 | ER ---
Nurse's Notes [facility] Name: Angeli Barnes Age: 65 yrs Sex: Female : 1955 Arrival Date: 10/15/2020 Time: 12:01 Bed 6 Private MD: Diagnosis: Sciatica;Low back pain;Spondylolysis, lumbar region Presentation: 10/15 12:06 Chief complaint: Patient states: Shooting pain on R lower back since 2 weeks [employer]. In ca1 the last week it's moved across to the L lower back then shoots down to both legs. It's been so hard for me to walk now. Coronavirus screen: Client denies travel out of the [place] in the last 14 days. At this time, the client does not indicate any symptoms associated with coronavirus-19. Ebola Screen: Patient negative for fever greater than or equal to 101.5 degrees Fahrenheit, and additional compatible Ebola Virus Disease symptoms Patient denies exposure to infectious person. Patient denies travel to an Ebola-affected area in the 21 days before illness onset. No symptoms or risks identified at this time. Initial Sepsis Screen: Does the patient meet any 2 criteria? No. Patient's initial sepsis screen is negative. Does the patient have a suspected source of infection? No. Patient's initial sepsis screen is negative. Risk Assessment: Do you want to hurt yourself or someone else? Patient reports no desire to harm self or others. Onset of symptoms was October 15, 2020. 12:06 Method Of Arrival: Wheelchair ca1 12:06 Acuity: ERIK 4 ca1 Historical: - Allergies: 12:09 Sulfa (Sulfonamide Antibiotics); ca1 12:09 unknown medication; ca1 - Home Meds: 12:09 lisinopril 25 mg Oral tab 1 tab once daily [Active]; levothyroxine 75 mcg tab 1 tab ca1 once daily [Active]; - PMHx: 12:09 Hypertension; Hypothyroidism; ca1 - PSHx: 12:09 bladder lift; Hysterectomy; ca1 - Immunization history:: Flu vaccine is up to date. - Social history:: Smoking status: Patient reports the use of cigarette tobacco products, smokes one-half pack cigarettes per day. Screenin:20 Abuse screen: Denies threats or abuse. Nutritional screening: No deficits noted. jd3 Tuberculosis screening: No symptoms or risk factors identified. Fall Risk Ambulatory Aid- None/Bed Rest/Nurse Assist (0 pts). Gait- Normal/Bed Rest/Wheelchair (0 pts) Mental Status- Oriented to own ability (0 pts). Total Elizbaeth Fall Scale indicates No Risk (0-24 pts). Assessment: 12:18 General: Appears in no apparent distress. uncomfortable, Behavior is calm, cooperative, jd3 appropriate for age. Pain: Complains of pain in buttocks Pain radiates to right leg and left leg Quality of pain is described as sharp, shooting, Is continuous, Aggravated by increased activity, repositioning, weight bearing. Neuro: Level of Consciousness is awake, alert, obeys commands, Oriented to person, place, time, situation. Cardiovascular: Denies chest pain, Capillary refill < 3 seconds Patient's skin is warm and dry. Respiratory: Airway is patent Respiratory effort is even, unlabored, Respiratory pattern is regular, symmetrical, Denies cough, shortness of breath. GI: No signs and/or symptoms were reported involving the gastrointestinal system. : No signs and/or symptoms were reported regarding the genitourinary system. EENT: No signs and/or symptoms were reported regarding the EENT system. Derm: Skin is intact, Skin is dry, Skin is normal, Skin temperature is warm. Musculoskeletal: Circulation, motion, and sensation intact. Range of motion: intact in all extremities. 13:30 Reassessment: Patient appears in no apparent distress at this time. No changes from jd3 previously documented assessment. Patient and/or family updated on plan of care and expected duration. Pain level reassessed. Patient is alert, oriented x 3, equal unlabored respirations, skin warm/dry/pink. 14:30 Reassessment: Patient appears in no apparent distress at this time. No changes from jd3 previously documented assessment. Patient and/or family updated on plan of care and expected duration. Pain level reassessed. Patient is alert, oriented x 3, equal unlabored respirations, skin warm/dry/pink. 15:33 Reassessment: Patient appears in no apparent distress at this time. Patient and/or jd3 family updated on plan of care and expected duration. Pain level reassessed. Patient is alert, oriented x 3, equal unlabored respirations, skin warm/dry/pink. Patient states feeling better. Vital Signs: 12:06 BP 162 / 76; Pulse 97; Resp 16 S; Temp 98(TE); Pulse Ox 99% on R/A; Weight 65.77 kg ca1 (R); Height 5 ft. 4 in. (162.56 cm) (R); Pain 10/10; 15:33 BP 140 / 65; Pulse 96; Resp 16 S; Pulse Ox 99% on R/A; jd3 12:06 Body Mass Index 24.89 (65.77 kg, 162.56 cm) ca1 ED Course: 12:01 Patient arrived in ED. am2 12:08 Triage completed. ca1 12:09 Arm band placed on right wrist. ca1 12:11 Mack Silva, DESHAUN is Primary Nurse. jd3 12:20 Patient has correct armband on for positive identification. Bed in low position. Call jd3 light in reach. Side rails up X 1. Pulse ox on. NIBP on. 12:36 Aldo Saul MD is Attending Physician. freda 13:35 CT Lumbar Spine Wo Con In Process Unspecified. EDMS 13:48 Inserted saline lock: 20 gauge in right antecubital area, using aseptic technique. jd3 Blood collected. 14:21 Hardeep Del Rosario MD is Referral Physician. freda 15:34 No provider procedures requiring assistance completed. IV discontinued, intact, jd3 bleeding controlled, No redness/swelling at site. Pressure dressing applied. Administered Medications: 13:48 Drug: NS 0.9% 1000 ml Route: IV; Rate: 1 bolus; Site: right antecubital; jd3 14:45 Follow up: Response: No adverse reaction; IV Status: Completed infusion jd3 13:48 Drug: Decadron - Dexamethasone 10 mg Route: IVP; Site: right antecubital; jd3 14:40 Follow up: Response: No adverse reaction jd3 13:48 Drug: TORadol 30 mg Route: IVP; Site: right antecubital; jd3 14:40 Follow up: Response: No adverse reaction jd3 13:48 Drug: Valium 5 mg Route: PO; jd3 14:40 Follow up: Response: No adverse reaction jd3 13:48 Drug: morphine 4 mg Route: IVP; Site: right antecubital; jd3 15:40 Follow up: Response: No adverse reaction; RASS: Alert and Calm (0) jd3 13:49 Drug: Zofran (Ondansetron) 4 mg Route: IVP; Site: right antecubital; jd3 15:40 Follow up: Response: No adverse reaction jd3 Outcome: 14:21 Discharge ordered by MD. barba 15:34 Discharged to home via wheelchair, with family. jd3 15:34 Condition: stable 15:34 Discharge instructions given to patient, Instructed on discharge instructions, follow up and referral plans. medication usage, Demonstrated understanding of instructions, follow-up care, medications, Prescriptions given X 4. 15:35 Patient left the ED. jd3 Signatures: Dispatcher [employer] EDAK Aldo Saul MD MD cha Moreno, Amanda am2 Davies, Jonathon, RN RN Bailey Perrin RN RN ca1
[2020-10-15 15:39] VITALS: TEMP 98; O2SAT 99
[2020-10-15 15:40] VITALS: BP 140/65
== END 2020-10-15 15:35 | disposition home or self-care (01) ==
LOC: ER 11:58
DX: M54.30 Sciatica, unspecified side (principal); M43.06 Spondylolysis, lumbar region; I10 Essential (primary) hypertension; E03.9 Hypothyroidism, unspecified; F17.210 Nicotine dependence, cigarettes, uncomplicated; Z88.2 Allergy status to sulfonamides
CPT/HCPCS: 85025; 36415; 81003; 83690; 80053; 72131; J1100; J7030; J2405; 96361; 96374; 96375; 99284